=== PATIENT | male | born 1980 | race Two or more races ===

== ENCOUNTER 2021-05-02 08:45 | Emergency (ER) | payer OTHER ==
[~2021-05-02] VITALS: Ht 172.7 cm; Wt 86.3 kg
[2021-05-02] MEDS ORDERED: MORPHINE SULFATE 2 MG/ML INJ. IVP ONE (09:15)
[2021-05-02] MEDS ORDERED: MORPHINE SULFATE 4 MG/ML INJ. IM ONE (09:15)
--- NOTE | 2021-05-02 09:22 | PHYS DOC ---
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 There is bone showing. Bleeding controlled. Finger tip is brought in with patient. He denies any past medical history or surgeries. He does need a tetanus shot. Denies soa, chest pain, fever, cough, nausea, vomiting, diarrhea, dizziness, numbness or tingling, headache. (ANDREE FLORIAN APRN) Review of Systems: Review of Systems: Constitutional: Denies fever or chills. [] Eyes: Denies change in visual acuity. [] HENT: Denies nasal congestion or sore throat. [] Respiratory: Denies cough or shortness of breath. [] Cardiovascular: Denies chest pain or edema. [] GI: Denies abdominal pain, nausea, vomiting, bloody stools or diarrhea. [] : Denies dysuria. [] Musculoskeletal: Denies back pain or +Right index finger joint pain. [] Integument: Denies rash. +laceration right index finger. [] Neurologic: Denies headache, focal weakness or sensory changes. [] Endocrine: Denies polyuria or polydipsia. [] Lymphatic: Denies swollen glands. [] Psychiatric: Denies depression or anxiety. [] (ANDREE FLORIAN APRN) Heart Score: C/O Chest Pain: No Risk Factors: Risk Factors: DM, Current or recent (<one month) smoker, HTN, HLP, family history of CAD, obesity. Risk Scores: Score 0 - 3: 2.5% MACE over next 6 weeks - Discharge Home Score 4 - 6: 20.3% MACE over next 6 weeks - Admit for Clinical Observation Score 7 - 10: 72.7% MACE over next 6 weeks - Early Invasive Strategies (ANDREE FLORIAN APRN) Current Medications: Current Medications Medications (Trade) Dose Ordered Sig/Ry Start Time Stop Time Status Last Admin Dose Admin Morphine Sulfate (Morphine Sulfate) 4 mg 1X ONCE 05/02/21 09:15 05/02/21 09:16 UNV (ANDREE FLORIAN APRN) Physical Exam: PE: Constitutional: Well developed, well nourished, no acute distress, non-toxic appearance. [] HENT: Normocephalic, atraumatic, bilateral external ears normal, oropharynx moist, no oral exudates, nose normal. [] Eyes: PERRLA, EOMI, conjunctiva normal, no discharge. [] Neck: Normal range of motion, no tenderness, supple, no stridor. [] Cardiovascular:Heart rate regular rhythm, no murmur [] Lungs & Thorax: Bilateral breath sounds clear to auscultation [] Abdomen: Bowel sounds normal, soft, no tenderness, no masses, no pulsatile masses. [] Skin: Warm, dry, no erythema, no rash. Right index finger severed a dip diagonally[] Back: No tenderness, no CVA tenderness. [] Extremities: Tip of right index finger tenderness, no cyanosis, no clubbing, ROM of DIP not intact, Tip of right index edema. [] Neurologic: Alert and oriented X 3, normal motor function, normal sensory function, no focal deficits noted. [] Psychologic: Affect normal, judgement normal, mood normal. [] (ANDREE FLORIAN APRN) EKG: EKG: [] (ANDREE FLORIAN APRN) Radiology/Procedures: Radiology/Procedures: [] Impression: [facility] [address] [place] [address] IMAGING REPORT Signed PATIENT: ALPESH LUZ ACCOUNT: [id number] : 1980 LOCATION: ER AGE: 40 SEX: M EXAM STATUS: REG ER ORD. PHYSICIAN: ANDREE FLORIAN APRN REASON: left index finger tip cut off PROCEDURE: HAND LEFT 3V 3 view study of the left hand Clinical indications: Index finger amputation injury. FINDINGS: There is amputation of the second digit at the level of the mid second distal phalanx. No fracture is seen elsewhere. No dislocation is seen. No lytic process is evident. IMPRESSION: Amputation injury of the second digit at the level of the mid second distal phalanx with small comminuted fracture fragments. Electronically signed by: Marcio Dang MD (05/02/2021 10:31 AM) [id number] DICTATED and SIGNED BY: MARCIO DANG MD DATE: 05/02/21 [id number] 0 (ANDREE FLORIAN APRN) Course & Med Decision Making: Course & Med Decision Making Pertinent Labs and Imaging studies reviewed. (See chart for details) Please see HPI. Alert and oriented x4. Ambulatory steady gait. Skin pink warm and dry. Radial pulse strong and present. Left index finger severed diagonally at DIP. Patient will be given 2 g of Ancef. Given tetanus shot. All other joints have intact ROM, sensation and pink warm and dry. Finger is dressed. I talked to [facility] and they stated for the patient to go to the emergency room as a transfer and they will see him and do a revision of the amputated finger and closure. Patient was accepted by Dr Philippe. Laceration repair Location: Left index finger tip severed at DIP Local anesthesia: None Interrupted sutures/Internal sutures: None Nerve/ligament/muscle damage: DIP severed Cleaning and irrigation: Chlorhexidine and saline The appropriate timeout was taken. The area was prepped and draped in the usual sterile fashion. The wound was copiously irrigated with normal saline and chlorhexidine. Patient tolerated well without complication. Dressing was applied to the area follow-up education is given to observe for signs and symptoms of infection, bleeding and to follow-up promptly if these occur. Patient can return in 48 hours for a wound recheck. Sutures to be removed in 7 to 10 days. [] (ANDREE FLORIAN APRN) Course & Med Decision Making I have examined and participated in the care of this patient and I have reviewed and agree with all pertinent clinical information above including history, exam, and recommendations. Patient was transferred to [facility] in stable condition for further management of his amputated finger. Finger was placed on ice and and saline Joao Hunt DO (JOAO HUNT DO) Daren Disclaimer: Daren Disclaimer: This electronic medical record was generated, in whole or in part, using a voice recognition dictation system. (ANDREE FLORIAN APRN) Departure Departure Impression: Primary Impression: Amputated finger Qualified Codes: S68.119A - Complete traumatic metacarpophalangeal amputation of unspecified finger, initial encounter Disposition: 02 SHORT TERM HOSPITAL ([facility]) Condition: STABLE Referrals: NO PCP (PCP) ANDREE FLORIAN APRN May 02, 2021 09:22 JOAO HUNT DO May 02, 2021 15:58
[2021-05-02] MEDS ORDERED: DIPH,PERTUSS(ACELL),TET VAC/PF 0.5 ML SYRINGE. VAX IM ONE (10:00)
--- NOTE | 2021-05-02 10:34 | RAD ---
3 view study of the left hand Clinical indications: Index finger amputation injury. FINDINGS: There is amputation of the second digit at the level of the mid second distal phalanx. No f racture is seen elsewhere. No dislocation is seen. No lytic process is evident. IMPRESSION: Amputation injury of the second digit at the level of the mid second distal phalanx with small comminuted fracture fragments. Electronically signed by: Eric Dang MD (05/02/2021 10:31 AM) [id number]
[2021-05-02 12:04] VITALS: BP 135/74
== END 2021-05-02 12:32 | disposition short-term general hospital (02) ==
LOC: ER 08:45
DX: S61.211A Laceration without foreign body of left index finger without damage to nail, initial encounter (principal); S68.110A Complete traumatic metacarpophalangeal amputation of right index finger, initial encounter; W18.09XA Striking against other object with subsequent fall, initial encounter; Y93.89 Activity, other specified; Y92.89 Other specified places as the place of occurrence of the external cause; Y99.8 Other external cause status
CPT/HCPCS: 12001; 73130; 90471; 90715; 96365; 96375; 99284; J0690; J2270